=== PATIENT | male | born 1985 | race African-American/Black ===

== ENCOUNTER 2018-06-07 03:26 | Emergency (ER) | payer SELFPAY ==
[2018-06-07 04:34] LABS: Absolute Lymphocytes (CBC) 1.4 K/uL (0.7-4.9); Absolute Monocytes 0.8 K/uL (0.1-1.3); Absolute Neutrophil 3.1 K/uL (1.8-8.0); Basophils % 1.1 % (0-1.3); Eosinophils % 4.5 % (0-4.4); Hematocrit 46.3 % (39.6-49.0); Lymphocytes % 25.1 % (15.3-44.8); MPV 8.3 fL (7.6-11.3); Monocytes % 14.2 % (3.3-12.3); RBC Red Blood Cell Count 5.44 M/uL (4.33-5.43)
[2018-06-07 04:35] LABS: Protime INR 1.23
[2018-06-07 04:51] LABS: ALT/SGPT 29 U/L (12-78); AST/SGOT 14 U/L (15-37); Albumin 3.5 g/dL (3.4-5.0); Alkaline Phosphatase 79 U/L (45-117); BUN Blood Urea Nitrogen 14 mg/dL (7-18); Bicarbonate 29 mmol/L (21-32); Bilirubin Direct 0.2 mg/dL (0-0.2); Bilirubin Total 0.7 mg/dL (0.2-1.0); Glucose Level 95 mg/dL (74-106); Magnesium 2.3 mg/dL (1.8-2.4); NT PRO-BNP 14 pg/mL (<125); Potassium 3.6 mmol/L (3.5-5.1); Protein, Total 7.6 g/dL (6.4-8.2); Sodium Level 139 mmol/L (136-145); Troponin (Emerg Dept Use Only) < 0.02 ng/mL (0.0-0.045)
--- NOTE | 2018-06-07 05:14 | ER ---
Nurse's Notes [facility] Name: Loy Durant Age: 33 yrs Sex: Male : 1985 Arrival Date: 06/07/2018 Time: 03:26 Bed 20 Private MD: Diagnosis: Essential (primary) hypertension;Obesity, unspecified Presentation: 06/07 03:35 Presenting complaint: Patient states: before I got into bed I checked my BP and it was rr5 high. (150/99).My lisinopril medication was changed last . 03:35 Transition of care: patient was not received from another setting of care. Onset of rr5 symptoms was June 07, 2018. Risk Assessment: Do you want to hurt yourself or someone else? Patient reports no desire to harm self or others. Initial Sepsis Screen: Does the patient meet any 2 criteria? No. Patient's initial sepsis screen is negative. Does the patient have a suspected source of infection? No. Patient's initial sepsis screen is negative. Care prior to arrival: Medication(s) given: clonidine 0.1mg tablet took 12mn today. 03:35 Method Of Arrival: Ambulatory rr5 03:35 Acuity: JYOTHI 3 rr5 Historical: - Allergies: 03:44 No Known Allergies; rr5 - Home Meds: 03:44 clonidine HCl 0.1 mg Oral tab [Active]; amlodipine 10 mg tab [Active]; rr5 - PMHx: 03:44 Hypertension; rr5 - PSHx: 03:44 None; rr5 - Immunization history:: Adult Immunizations not up to date. - Social history:: Smoking status: Patient uses tobacco products, chewing tobacco, Patient uses alcohol, Patient/guardian denies using street drugs. - Ebola Screening: : Patient negative for fever greater than or equal to 101.5 degrees Fahrenheit, and additional compatible Ebola Virus Disease symptoms Patient denies exposure to infectious person Patient denies travel to an Ebola-affected area in the 21 days before illness onset. - Family history:: not pertinent. Screenin:35 Abuse screen: Denies threats or abuse. Denies injuries from another. Nutritional rr5 screening: No deficits noted. Tuberculosis screening: No symptoms or risk factors identified. Fall Risk None identified. Total Dyer Fall Scale indicates No Risk (0-24 pts). Assessment: 03:35 General: Appears in no apparent distress. comfortable, Behavior is calm, cooperative, rr5 appropriate for age. Pain: Denies pain. Neuro: Level of Consciousness is awake, alert, obeys commands, Oriented to person, place, time, situation, Appropriate for age Reports light headed.. Cardiovascular: Capillary refill < 3 seconds Patient's skin is warm and dry. Respiratory: Airway is patent Respiratory effort is even, unlabored, Respiratory pattern is regular, symmetrical. GI: No signs and/or symptoms were reported involving the gastrointestinal system. : No signs and/or symptoms were reported regarding the genitourinary system. EENT: No signs and/or symptoms were reported regarding the EENT system. Derm: Skin is intact, Skin temperature is warm. Musculoskeletal: Capillary refill < 3 seconds, Range of motion: intact in all extremities. 04:30 Reassessment: Patient appears in no apparent distress at this time. No changes from rr5 previously documented assessment. Patient is alert, oriented x 3, equal unlabored respirations, skin warm/dry/pink. 05:30 Reassessment: Patient appears in no apparent distress at this time. Patient is alert, rr5 oriented x 3, equal unlabored respirations, skin warm/dry/pink. no complaints made. stat medication for blood pressure given. Patient states feeling better. Patient states symptoms have improved. 06:10 Reassessment: Patient appears in no apparent distress at this time. Patient is alert, rr5 oriented x 3, equal unlabored respirations, skin warm/dry/pink. discharge instruction given and explained without complaints made. Patient states feeling better. Patient states symptoms have improved. Vital Signs: 03:35 BP 158 / 100; Pulse 87; Resp 19; Temp 99.1; Pulse Ox 100% ; Weight 154.67 kg; Height 5 rr5 ft. 9 in. (175.26 cm); Pain 0/10; 04:15 BP 142 / 100; Pulse 89; Resp 18; Pulse Ox 99% ; rr5 04:31 BP 132 / 96; Pulse 92; Resp 18; Pulse Ox 99% ; rr5 05:30 BP 132 / 88; Pulse 82; Resp 17; Pulse Ox 99% ; rr5 06:10 BP 126 / 84; Pulse 75; Resp 16; Pulse Ox 99% ; rr5 03:35 Body Mass Index 50.36 (154.67 kg, 175.26 cm) rr5 ED Course: 03:26 Patient arrived in ED. am2 03:38 Tim Miles, RN is Primary Nurse. rr5 03:43 Triage completed. rr5 03:45 Arm band placed on right wrist. rr5 03:48 Patient has correct armband on for positive identification. Bed in low position. Call rr5 light in reach. Side rails up X2. Pulse ox on. NIBP on. 04:00 ext js developer on. rr5 04:15 Inserted saline lock: 20 gauge in right hand, using aseptic technique. Blood collected. rr5 04:25 X-ray completed. Portable x-ray completed in exam room. Patient tolerated procedure sg4 well. 04:25 XRAY Chest (1 view) In Process Unspecified. EDMS 04:26 Tomasz Rosenthal MD is Attending Physician. tobi 05:13 Itz Cole MD is Referral Physician. tobi 06:07 No provider procedures requiring assistance completed. IV discontinued, intact, rr5 bleeding controlled, No redness/swelling at site. Pressure dressing applied. Administered Medications: 05:33 Drug: Maxzide (37.5 mg-25 mg) 1 caps Route: PO; rr5 06:11 Follow up: Response: No adverse reaction rr5 Outcome: 05:13 Discharge ordered by . tobi 06:07 Discharged to home ambulatory. rr5 06:07 Condition: stable 06:07 Discharge instructions given to patient, Instructed on discharge instructions, follow up and referral plans. medication usage, Demonstrated understanding of instructions, follow-up care, medications, Prescriptions given X 1. 06:12 Patient left the ED. rr5 Signatures: Dispatcher [employer] [facility] Tomasz Rosenthal MD MD cha Moreno, Amanda am2 Garcia, Susana sg Tim Miles, RN RN rr5
--- NOTE | 2018-06-07 05:15 | EDPHYS ---
Physician Documentation [facility] Name: Loy Durant Age: 33 yrs Sex: Male : 1985 Arrival Date: 06/07/2018 Time: 03:26 Bed 20 Private MD: ED Physician Tomasz Rosenthal HPI: 06/07 05:12 This 33 yrs old Black Male presents to ER via Ambulatory with complaints of High Blood tobi Pressure. 05:12 The patient has elevated blood pressure and discovered this at home. Onset: The tobi symptoms/episode began/occurred yesterday. Modifying factors: The symptoms are aggravated by activity, The symptoms are alleviated by remaining still. Associated signs and symptoms: The patient has no apparent associated signs or symptoms. Severity of symptoms: At its worst the blood pressure was mild. The patient has experienced similar episodes in the past. Historical: - Allergies: 03:44 No Known Allergies; rr5 - Home Meds: 03:44 clonidine HCl 0.1 mg Oral tab [Active]; amlodipine 10 mg tab [Active]; rr5 - PMHx: 03:44 Hypertension; rr5 - PSHx: 03:44 None; rr5 - Immunization history:: Adult Immunizations not up to date. - Social history:: Smoking status: Patient uses tobacco products, chewing tobacco, Patient uses alcohol, Patient/guardian denies using street drugs. - Ebola Screening: : Patient negative for fever greater than or equal to 101.5 degrees Fahrenheit, and additional compatible Ebola Virus Disease symptoms Patient denies exposure to infectious person Patient denies travel to an Ebola-affected area in the 21 days before illness onset. - Family history:: not pertinent. ROS: 05:12 Constitutional: Negative for fever, chills, and weight loss, Eyes: Negative for injury, tobi pain, redness, and discharge, ENT: Negative for injury, pain, and discharge, Neck: Negative for injury, pain, and swelling, Cardiovascular: Negative for chest pain, palpitations, and edema, Respiratory: Negative for shortness of breath, cough, wheezing, and pleuritic chest pain, Abdomen/GI: Negative for abdominal pain, nausea, vomiting, diarrhea, and constipation, Back: Negative for injury and pain, : Negative for injury, bleeding, discharge, and swelling, MS/Extremity: Negative for injury and deformity, Skin: Negative for injury, rash, and discoloration, Neuro: Negative for headache, weakness, numbness, tingling, and seizure, Psych: Negative for depression, anxiety, suicide ideation, homicidal ideation, and hallucinations, Allergy/Immunology: Negative for hives, rash, and allergies, Endocrine: Negative for neck swelling, polydipsia, polyuria, polyphagia, and marked weight changes, Hematologic/Lymphatic: Negative for swollen nodes, abnormal bleeding, and unusual bruising. Exam: 05:12 Constitutional: This is a well developed, well nourished patient who is awake, alert, tobi and in no acute distress. Head/Face: Normocephalic, atraumatic. Eyes: Pupils equal round and reactive to light, extra-ocular motions intact. Lids and lashes normal. Conjunctiva and sclera are non-icteric and not injected. Cornea within normal limits. Periorbital areas with no swelling, redness, or edema. ENT: Nares patent. No nasal discharge, no septal abnormalities noted. Tympanic membranes are normal and external auditory canals are clear. Oropharynx with no redness, swelling, or masses, exudates, or evidence of obstruction, uvula midline. Mucous membranes moist. Neck: Trachea midline, no thyromegaly or masses palpated, and no cervical lymphadenopathy. Supple, full range of motion without nuchal rigidity, or vertebral point tenderness. No Meningismus. Chest/axilla: Normal chest wall appearance and motion. Nontender with no deformity. No lesions are appreciated. Cardiovascular: Regular rate and rhythm with a normal S1 and S2. No gallops, murmurs, or rubs. Normal PMI, no JVD. No pulse deficits. Respiratory: Lungs have equal breath sounds bilaterally, clear to auscultation and percussion. No rales, rhonchi or wheezes noted. No increased work of breathing, no retractions or nasal flaring. Abdomen/GI: Soft, non-tender, with normal bowel sounds. No distension or tympany. No guarding or rebound. No evidence of tenderness throughout. Back: No spinal tenderness. No costovertebral tenderness. Full range of motion. Male : Normal genitalia with no discharge or lesions. Skin: Warm, dry with normal turgor. Normal color with no rashes, no lesions, and no evidence of cellulitis. MS/ Extremity: Pulses equal, no cyanosis. Neurovascular intact. Full, normal range of motion. Neuro: Awake and alert, GCS 15, oriented to person, place, time, and situation. Cranial nerves II-XII grossly intact. Motor strength 5/5 in all extremities. Sensory grossly intact. Cerebellar exam normal. Normal gait. Psych: Awake, alert, with orientation to person, place and time. Behavior, mood, and affect are within normal limits. Vital Signs: 03:35 BP 158 / 100; Pulse 87; Resp 19; Temp 99.1; Pulse Ox 100% ; Weight 154.67 kg; Height 5 rr5 ft. 9 in. (175.26 cm); Pain 0/10; 04:15 BP 142 / 100; Pulse 89; Resp 18; Pulse Ox 99% ; rr5 04:31 BP 132 / 96; Pulse 92; Resp 18; Pulse Ox 99% ; rr5 05:30 BP 132 / 88; Pulse 82; Resp 17; Pulse Ox 99% ; rr5 06:10 BP 126 / 84; Pulse 75; Resp 16; Pulse Ox 99% ; rr5 03:35 Body Mass Index 50.36 (154.67 kg, 175.26 cm) rr5 MDM: 04:23 Patient medically screened. tobi 04:26 Patient medically screened. tobi 06/07 03:51 Order name: Basic Metabolic Panel; Complete Time: 05:11 06/07 03:51 Order name: CBC with Diff; Complete Time: 05:11 06/07 03:51 Order name: LFT's; Complete Time: 05:11 06/07 03:51 Order name: Magnesium; Complete Time: 05:11 06/07 03:51 Order name: NT PRO-BNP; Complete Time: 05:11 06/07 03:51 Order name: PT-INR; Complete Time: 05:11 06/07 03:51 Order name: Troponin (emerg Dept Use Only); Complete Time: 05:11 06/07 03:51 Order name: XRAY Chest (1 view) 06/07 03:51 Order name: EKG; Complete Time: 03:52 06/07 03:51 Order name: Cardiac monitoring; Complete Time: 04:16 06/07 03:51 Order name: EKG - Nurse/Tech; Complete Time: 04:16 06/07 03:51 Order name: IV Saline Lock; Complete Time: 04:16 06/07 03:51 Order name: Labs collected and sent; Complete Time: 04:16 06/07 03:51 Order name: O2 Per Protocol; Complete Time: 04:16 06/07 03:51 Order name: O2 Sat Monitoring; Complete Time: 04:16 bb Administered Medications: 05:33 Drug: Maxzide (37.5 mg-25 mg) 1 caps Route: PO; rr5 06:11 Follow up: Response: No adverse reaction rr5 Disposition: 06/07/18 05:13 Discharged to Home. Impression: Essential (primary) hypertension, Obesity, unspecified. - Condition is Stable. - Discharge Instructions: Hypertension, Obesity, Adult, Hypertension, [id number], How to Take Your Blood Pressure, [id number], Aspirin and Your Heart, Managing Your Hypertension. - Prescriptions for Maxzide- 25mg 37.5-25 mg Oral tablet - take 2 tablet by ORAL route once daily; 30 tablet. Norvasc 5 mg Oral Tablet - take 1 tablet by ORAL route once daily; 20 tablet. - Medication Reconciliation Form, Thank You Letter, Antibiotic Education, Prescription Opioid Use, Work release form form. - Follow up: Private Physician; When: 2 - 3 days; Reason: Recheck today's complaints, Continuance of care, Re-evaluation by your physician. Follow up: Itz Cole MD; When: 2 - 3 days; Reason: Recheck today's complaints, Re-evaluation by your physician. - Problem is new. - Symptoms have improved. Signatures: Dispatcher [employer] [facility] Tomasz Rosenthal MD MD cha Ballard, Brenda, RN RN Tim Logan RN RN rr5 Corrections: (The following items were deleted from the chart) 06:12 05:13 06/07/2018 05:13 Discharged to Home. Impression: Essential (primary) rr5 hypertension; Obesity, unspecified. Condition is Stable. Forms are Medication Reconciliation Form, Thank You Letter, Antibiotic Education, Prescription Opioid Use. Follow up: Private Physician; When: 2 - 3 days; Reason: Recheck today's complaints, Continuance of care, Re-evaluation by your physician. Follow up: Itz Cole; When: 2 - 3 days; Reason: Recheck today's complaints, Re-evaluation by your physician. Problem is new. Symptoms have improved. tobi
[2018-06-07] MEDS ORDERED: MAXZIDE (HCTZ 25/TRIAMTERENE 37.5MG) TAB ONE (05:35)
--- NOTE | 2018-06-07 07:42 | EKG ---
Test Date: 2018-06-07 Test Time: 03:58:58 Grants Assistant: RR MEASUREMENT RESULTS: Intervals: Rate: 81 OR: 146 QRSD: 86 QT: 374 QTc: 434 [place]: P: 64 OR: 146 QRS: 24 T: 32 INTERPRETIVE STATEMENTS: Normal sinus rhythm Normal ECG No previous ECG available for comparison Electronically Signed On 06-07-18 07:41:15 WELDER OXYHYDROGEN by Won Larkin
--- NOTE | 2018-06-07 07:50 | RAD REPORT ---
EXAM DESCRIPTION: RAD - Chest Single View - 06/07/2018 4:25 am CLINICAL HISTORY: Hypertension, shortness of breath COMPARISON: None. TECHNIQUE: AP portable chest image was obtained 0421 hours . FINDINGS: Lungs are clear. Heart and vasculature are normal. No measurable pleural effusion and no p neumothorax. No acute bony abnormality seen. No acute aortic findings suspected. IMPRESSION: No acute cardiopulmonary process.
== END 2018-06-07 06:12 | disposition home or self-care (01) ==
LOC: ER 03:26
DX: I10 Essential (primary) hypertension (principal); E66.9 Obesity, unspecified; Z68.43 Body mass index [BMI] 50.0-59.9, adult; Z79.899 Other long term (current) drug therapy; F17.220 Nicotine dependence, chewing tobacco, uncomplicated
CPT/HCPCS: 36415; 71045; 80048; 80076; 83735; 83880; 84484; 85025; 85610; 93005; 99284